=== PATIENT | female | born 1960 ===

== ENCOUNTER 2017-02-05 17:37 | Emergency (ER) | payer OTHER ==
[2017-02-05 17:42] VITALS: BP 128/84; RESP 18; TEMP 99.6; O2SAT 100
--- NOTE | 2017-02-05 19:13 | ED PDOC ---
Lower Extremity Pain/Injury Time Seen by Provider: 02/05/17 18:34 Chief Complaint (Nursing): Lower Extremity Problem/Injury Chief Complaint (Provider): Lower Extremity Problem/Injury History Per: Patient History/Exam Limitations: no limitations Onset/Duration Of Symptoms: Hrs Current Symptoms Are (Timing): Still Present Severity: Mild Additional Complaint(s): 56 y/o female patient presenting to the ED with Knee pain. PT states that Friday she fell when she was trying to protect her grandchild from falling and she took the brunt of the pain to the right knee. PT states that she immediately washed the wound and cleaned it with peroxide, applied neosporin and bandaged it. She also states she took the wound dressing off on Friday so the wound could "breathe" and it had began showing signs of scabbing and healing. Today however she noticed that today around lunchtime she began feeling tightness, itching, discharging from the wound, redness and swelling and the scabbing had ceased. She also states the pain is increased when she bends her knee. - Knee Description Of Injury: Fell Past Medical History Reviewed: Historical Data, Nursing Documentation, Vital Signs Vital Signs: Last Vital Signs Temp 99.6 F 02/05/17 17:39 Pulse 93 H 02/05/17 17:39 Resp 18 02/05/17 17:39 BP 128/84 02/05/17 17:39 Pulse Ox 100 02/05/17 17:39 - Medical History Other PMH: Lupus Resolved with Chemo, Cancer (+)Remission - Surgical History Surgical History: Cholecystectomy - Family History Family History: States: Unknown Family Hx - Home Medications Home Medications: Ambulatory Orders Medication Instructions Recorded Ondansetron [Zofran] 4 mg PO Q8H #9 tab 10/18/15 Cephalexin [cephalexin] 500 mg PO BID #10 cap 02/05/17 - Allergies Allergies/Adverse Reactions: Allergies Allergy/AdvReac Type Severity Reaction Status Date / Time No Known Allergies Allergy Verified 10/18/15 14:06 Review of Systems ROS Statement: Except As Marked, All Systems Reviewed And Found Negative Constitutional: Negative for: Fever Musculoskeletal: Positive for: Leg Pain (Right Knee ) Physical Exam - Reviewed Nursing Documentation Reviewed: Yes Vital Signs Reviewed: Yes - Physical Exam Appears: Positive for: Non-toxic, No Acute Distress Skin: Positive for: Normal Color, Warm Extremity: Positive for: Other (Right Knee (+)Ecchymosis, Redness, Swelling) Neurologic/Psych: Positive for: Alert, Oriented. Negative for: Motor/Sensory Deficits - ECG O2 Sat by Pulse Oximetry: 100 (RA ) Pulse Ox Interpretation: Normal Medical Decision Making Medical Decision Making: Time: 1833 Initial impression: Wound Check Mild Cellulitis Initial plan: --CEPHALEXIN 500MG Scribe Attestation: Documented by Rashmi Chinchilla acting as a scribe for NICOLETTE Mesa MD Scribe Attestation: All medical record entries made by the Scribe were at my direction and personally dictated by me. I have reviewed the chart and agree that the record accurately reflects my personal performance of the history, physical exam, medical decision making, and the department course for this patient. I have also personally directed, reviewed, and agree with the discharge instructions and disposition. Disposition - Clinical Impression Clinical Impression: Visit for wound check - Patient ED Disposition Is Patient to be Admitted: No - Disposition Disposition: Routine/Home Disposition Time: 20:00 Condition: STABLE Prescriptions: Cephalexin [cephalexin] 500 mg PO BID #10 cap Instructions: Acute Wound Care (ED) Forms: [employer] (Finnish)
[2017-02-05 19:21] VITALS: PULSE 89
== END 2017-02-05 19:20 | disposition home or self-care (01) ==
LOC: H.ER 17:37
DX: T14.8 Other injury of unspecified body region (principal); W19.XXXA Unspecified fall, initial encounter; Y92.89 Other specified places as the place of occurrence of the external cause